=== PATIENT | male | born 1995 | race Caucasian/White ===

== ENCOUNTER 2020-08-10 05:14 | Day surgery (SDC) | payer BC ==
[2020-08-07 15:27] VITALS: BMI 35.4
--- NOTE | 2020-08-10 10:01 | HP ---
History & Physical Update - History History: No Change - Physical Physical: No Change - Assessment Assessment: No Change - Plan Plan: No Change (for wide excision pilonidal cyst and sinus tract; r/b/t/a's d/w the patient pre-op; see my office notes for details.)
[2020-08-10] MEDS ORDERED: ROCURONIUM BROMIDE 50 MG/5 ML SYRINGE ONE ×2 (11:39)
[2020-08-10] MEDS ORDERED: PROPOFOL 20 ML ONE ×2 (11:39)
[2020-08-10] MEDS ORDERED: MIDAZOLAM HCL 2 MG/2 ML SINGLE DOSE VIAL ONE (11:40)
[2020-08-10] MEDS ORDERED: ceFAZolin SODIUM 1 GM VIAL IVPB ONE (12:00)
[2020-08-10] MEDS ORDERED: METHYLENE BLUE 50 MG/10 ML AMPUL ONE (12:16)
[2020-08-10] MEDS ORDERED: ONDANSETRON 4 MG/2 ML VIAL IVPUSH PRN (12:27)
[2020-08-10] MEDS ORDERED: LACTATED RINGERS SOLUTION 1,000 ML IV SCH (12:30)
[2020-08-10] MEDS ORDERED: NEOSTIGMINE METHYLSULFATE 0.5 MG/ML - 10 ML MDV ONE (12:38)
--- NOTE | 2020-08-10 12:51 | OP ---
Operative Note - Note: Operative Date: 08/10/20 Pre-Operative Diagnosis: pilonidal cyst and sinus tract Operation: wide excision pilonidal cyst and sinus tract Findings: pilonidal cyst and sinus tract Post-Operative Diagnosis: Same as Pre-op Surgeon: Jerome Llanes Anesthesiologist/DESIGN PRINTING MACHINE SETTER: Farhana Prajapati Anesthesia: General Specimens Removed: pilonidal cyst and sinus tract Estimated Blood Loss (mls): 10
[2020-08-10 15:09] VITALS: BP 123/73; PULSE 81; TEMP 97.7
--- NOTE | 2020-08-13 14:21 | PATH ---
Surgical Pathology Report Patient Name: MARIBEL SUBRAMANIAN V. [facility]. Rec. #: [id number] /Age/Gender: 1995 (Age: 25) / M Account: [id number] Location: [facility] SURGICAL Taken: 08/10/2020 Received: 08/10/2020 Reported: 08/13/2020 Physicians: Jerome Llanes MD Specimen(s) Received PILONIDAL CYST Clinical History Pilonidal sinus without abscess Final Diagnosis PILONIDAL CYST, EXCISION: PORTION OF SKIN WITH PILONIDAL CYST SHOWING MARKED ACUTE AND CHRONIC INFLAMMATION, OLD HEMORRHAGE, AND MULTINUCLEATED GIANT CELL REACTION. NEGATIVE FOR MALIGNANCY. Electronically Signed Codey Nance M.D. Gross Description Received in formalin, labeled "pilonidal cyst" it a portion of skin measuring 3.0 x 1.3 x 2.5 cm. The skin surface is unremarkable. The resection margin is inked blue. Serial sections reveal a heterogeneous cystic lesion in the deep dermis. Hook Up Driver sections submitted in 2 cassettes.
--- NOTE | 2020-08-21 16:18 | OP ---
DATE OF OPERATION: 08/10/2020 PREOPERATIVE DIAGNOSIS: Pilonidal cyst and sinus tract. POSTOPERATIVE DIAGNOSIS: Pilonidal cyst and sinus tract. PROCEDURE: Wide excision pilonidal cyst and sinus tract. SURGEON: Jerome Llanes MD ANESTHESIA: General. OPERATIVE FINDINGS: There was a pilonidal cyst and sinus tract without active infection. The rest of the findings were normal. DESCRIPTION OF PROCEDURE: The patient was placed on the operating room table in the prone jackknife position after the induction of general anesthesia. The buttock cheeks were taped to provide lateral retraction and the area over the pilonidal cyst and sinus tract was prepped with ChloraPrep and draped in a sterile fashion. A timeout was taken and then using an angiocath and syringe filled with Methythylene blue it was injected into the opening of the sinus tract. An elliptical skin incision was mapped out and an incision made with the scalpel and taken down through the skin and subcutaneous tissue and using electrocautery as well tissue was excised and any blue stained areas were included in the excision. The excised specimen was sent for pathological examination. Hemostasis was secured with electrocautery and the wound copiously irrigated with sterile saline. Hemostasis was again verified and then the wound was then packed with a combination of Surgicel and Xeroform followed by dry sterile dressings. The procedure was terminated at this point and the patient aroused from general anesthesia and transferred to the postanesthesia care unit in stable condition awake and alert. ESTIMATED BLOOD LOSS: 10 mL. REPLACEMENTS: Crystalloid. DRAINS: None. SPECIMEN: Pilonidal cyst in sinus tract to Pathology. I, Jerome Llanes, was physically present in the operating room from the time the patient was placed on the operating table until he was transferred to the postanesthesia care unit in my accompaniment. MD KELIVN Mendez/[id number] MTDD
== END 2020-08-10 15:15 | disposition home or self-care (01) ==
LOC: JASU-SURG 05:14
PROVIDERS: ATTEND Surgery
PROC: 0JB90ZZ Excision of Buttock Subcutaneous Tissue and Fascia, Open Approach (ICD-10-PCS; principal; 2020-08-10 12:00)
DX: L05.92 Pilonidal sinus without abscess (principal)
CPT/HCPCS: 88304-TC; 94760; Q9968